=== PATIENT | female | born 1990 | race Caucasian/White ===

== ENCOUNTER 2018-05-30 09:46 | Emergency (ER) | payer OTHER, SELFPAY ==
[~2018-05-30] VITALS: Ht 160 cm; Wt 89.7 kg
--- NOTE | 2018-05-30 09:58 | NUR ---
PT AMBULATED TO ROOM WITH STEADY GAIT. PT STATED THAT SHE THINKS SHE IS 5 WEEKS AND HAS BEEN SPOTTING FOR A WEEK. STATED THAT BLEEDING TODAY IS MORE. STATED THAT THE BLEEDING IS NOT ENOUGH TO SOAK A PAD. DENIES PAIN/CRAMPING. PT HAS HAD A MISCARRAGE IN THE PAST.
--- NOTE | 2018-05-30 10:10 | NUR ---
PT AMBULATED TO THE BATHROOM WITH STEADY GAIT TO PROVIDE URINE SAMPLE.
[2018-05-30 10:42] LABS: MICROSCOPIC AUTO
[2018-05-30 10:44] LABS: CULTURE INDICATED? NO
--- NOTE | 2018-05-30 10:54 | NUR ---
LAB AT BEDSIDE.
[2018-05-30 11:32] LABS: BASOPHILS # (AUTO) 0.02 x10^3/uL (0-0.1); BASOPHILS % (AUTO) 0 % (0-1); EOSINOPHILS % (AUTO) 2 % (1-7); LYMPHOCYTES # (AUTO) 1.86 x10^3/uL (1-3.4); LYMPHOCYTES % (AUTO) 32 % (22-44); MD NO; MEAN CORPUSCULAR HEMOGLOBIN 32.2 pg (27.0-34.8); MEAN CORPUSCULAR HGB CONC 34.6 g/dL (32.4-35.8); MEAN PLATELET VOLUME 9.1 fL (7.4-10.4); MONOCYTES # (AUTO) 0.29 x10^3/uL (0.2-0.8); MONOCYTES % (AUTO) 5 % (2-9); NEUTROPHILS # (AUTO) 3.64 x10^3/uL (1.8-6.8); NEUTROPHILS % (AUTO) 62 % (42-75); PLATELET COUNT 251 x10^3/uL (130-400); RED BLOOD COUNT 4.31 x10^6/uL (3.82-5.3); RED CELL DISTRIBUTION WIDTH 13.4 % (9.6-15.2)
--- NOTE | 2018-05-30 11:47 | NUR ---
PT IS RESTING IN BED, RESPIRATIONS EQUAL AND NON LABORED. NAD. PT IS CONNECTED TO THE MONITOR. CALL LIGHT WITHIN REACH.
[2018-05-30 11:52] LABS: CALCIUM 8.8 mg/dL (8.5-10.1); CHLORIDE 110 mmol/L (98-107)
[2018-05-30 12:16] LABS: ALBUMIN 3.5 g/dL (3.4-5.0); ANION GAP 6 mmol/L (5-15); CREATININE 0.59 mg/dL (0.55-1.02)
[2018-05-30 13:26] VITALS: BP 116/77
== END 2018-05-30 13:49 | disposition home or self-care (01) ==
LOC: ED 11:33
DX: O20.0 Threatened abortion (principal)
CPT/HCPCS: 36415; 76801; 80048; 81001; 82040; 84702; 85025; 86901; 99284